=== PATIENT | female | born 1975 | race Caucasian/White ===

== ENCOUNTER 2019-11-08 18:39 | Emergency (ER) | payer MEDICAID ==
[~2019-11-08] VITALS: Ht 172.7 cm; Wt 104.5 kg
[2019-11-08 19:08] LABS: BASOPHILS % (AUTO) 0.4 % (0-1); EOSINOPHILS # (AUTO) 0.1 X10'3 (0-0.9); EOSINOPHILS % (AUTO) 1.9 % (0-6); HEMATOCRIT 41.3 % (35.0-45.0); LYMPHOCYTES # (AUTO) 2.4 X10'3 (1.1-4.8); LYMPHOCYTES % (AUTO) 32.1 % (21-51); MEAN CORPUSCULAR HGB CONC 33.9 g/dL (33.0-36.5); MEAN CORPUSCULAR VOLUME 94.6 FL (78-98); MEAN PLATELET VOLUME 8.3 FL (7.4-10.4); MONOCYTES # (AUTO) 0.6 X10'3 (0-0.9); MONOCYTES % (AUTO) 7.6 % (2-12); NEUTROPHILS # (AUTO) 4.3 X10'3 (1.8-7.7); PLATELET COUNT 278 X10'3 (140-440); RED BLOOD COUNT 4.36 X10'6 (4.20-5.60); RED CELL DISTRIBUTION WIDTH 12.6 % (11.5-14.5); WHITE BLOOD COUNT 7.5 X10'3 (4.5-11.0)
[2019-11-08 19:13] LABS: CLARITY,URINE CLEAR (Clear); COLOR,URINE YELLOW (Yellow); GLUCOSE, URINE NEGATIVE (Neg); KETONES,URINE NEGATIVE (Neg); LEUKOCYTE ESTERASE ,URINE TRACE (Neg); NITRITES, URINE NEGATIVE (Neg); OCCULT BLOOD,URINE NEGATIVE (Neg); PH,URINE 5.5 (4.8-8.0); PROTEIN,URINE NEGATIVE (Neg); UROBILINOGEN,URINE 0.2 E.U/dL (0.2-1.0)
[2019-11-08 19:14] LABS: UA COLLECTION TYPE CLN CATCH MIDSTREAM; URINE HCG NEGATIVE (NEG)
[2019-11-08 19:21] LABS: BACTERIA,URINE 2+ /HPF (Neg); RBC,URINE NONE SEEN /HPF (0-2); SQUAMOUS EPITHELIAL CELL,UR MODERATE /LPF (FEW); WBC,URINE 0-4 /HPF (0-4)
[2019-11-08 19:29] LABS: ALANINE AMINOTRANSFERASE 20 U/L (12-78); ALBUMIN 4.1 G/DL (3.4-5.0); ALBUMIN/GLOBULIN RATIO 1.2 (1.1-1.5); ALKALINE PHOSPHATASE 75 IU/L (46-116); AMYLASE 76 U/L (25-115); ANION GAP 11 (8-16); ASPARTATE AMINO TRANSFERASE 15 U/L (10-37); BILIRUBIN,TOTAL 0.4 MG/DL (0.1-1.0); BLOOD UREA NITROGEN 12 MG/DL (7-18); BUN/CREATININE RATIO 13.3 (6.6-38.0); CALCIUM 9.2 MG/DL (8.5-10.1); CHLORIDE 109 MMOL/L (99-107); GLUCOSE 88 MG/DL (70-104); LIPASE 106 U/L (73-393); POTASSIUM 3.6 MMOL/L (3.5-5.1); SODIUM 142 MMOL/L (135-145); TOTAL CARBON DIOXIDE 22.2 MMOL/L (24-32); TOTAL PROTEIN 7.5 G/DL (6.4-8.2); eGFR 69 ML/MIN
[2019-11-08] MEDS ORDERED: PANT-47 PO (20:26)
[2019-11-08] MEDS ORDERED: HYDR-3965 PO (20:26)
[2019-11-08] MEDS ORDERED: ONDA8TAB13 PO (20:26)
[2019-11-08] MEDS ORDERED: ondansetron/PF 4mg/2ml inj IV ONE (20:30)
[2019-11-08] MEDS ORDERED: normal saline 1000ML IV soln IVB ONE (20:30)
[2019-11-08] MEDS ORDERED: morphine 4 MG/ML inj SYRINge IV ONE (20:30)
[2019-11-08] MEDS ORDERED: pantoprazole 40 MG vial IV ONE (20:30)
[2019-11-08] MEDS ORDERED: PROP40TA72 PO (21:18)
[2019-11-08] MEDS ORDERED: TRAZ-219 PO (21:18)
[2019-11-08] MEDS ORDERED: TOPI25TA49 PO (21:18)
[2019-11-08 22:01] VITALS: BP 121/87
--- NOTE | 2019-11-11 11:13 | NUR ---
CALLED GOT A KRIS WHO SAID [phone] IS A WRONG NUMBER
--- NOTE | 2019-11-11 11:17 | NUR ---
CALLED NEXT OF K[facility] MABLE REVELES [phone], I LEFT A MESSAGE TO HAVE EDGAR CALL US BACK.
--- NOTE | 2019-11-11 11:45 | NUR ---
PT. CALLED BACK AND HER PHONE NUMBER HAD THE WRONG PREFIX. [phone]. PT. STATED SHE WANT US TO CALL IN RX AT [facility] ON [address]. SHE ALSO STATED SHE WOULD NOT BE TAKING THE ANTIBIOTIC UNLESS SHE COULD ALSO GET AN RX FOR DIFLUCAN. WROTE FOR MACROBID 100MG PO BID X 5 DAYS AND DIFLUCAN 200MG PO X 1 DOSE.
--- NOTE | 2019-11-11 12:02 | NUR ---
PHONED IN BOTH RX'S TO [facility] ON [facility].
== END 2019-11-08 22:02 | disposition home or self-care (01) ==
LOC: ER 18:40
DX: R10.11 Right upper quadrant pain (principal); R10.13 Epigastric pain; R11.10 Vomiting, unspecified; R19.7 Diarrhea, unspecified; G43.909 Migraine, unspecified, not intractable, without status migrainosus; I10 Essential (primary) hypertension; Z79.899 Other long term (current) drug therapy
CPT/HCPCS: 36415; 80053; 81001; 81025; 82150; 83690; 85025; 87077; 87088; 87186; 96361; 96374; 96375; 99283; C9113; J2270; J2405; J7030

== ENCOUNTER 2020-02-06 20:22 | Emergency (ER) | payer MEDICAID ==
[~2020-02-06] VITALS: Ht 172.7 cm; Wt 99.0 kg
[~2020-02-06 20:22] MED LIST: ONDA8TAB13 PO; PANT-47 PO; PROP40TA72 PO; TOPI25TA49 PO; TRAZ-256 PO
[2020-02-06 20:50] LABS: BASOPHILS % (AUTO) 0.6 % (0-1); EOSINOPHILS # (AUTO) 0.1 X10'3 (0-0.9); EOSINOPHILS % (AUTO) 1.7 % (0-6); HEMATOCRIT 40.7 % (35.0-45.0); HEMOGLOBIN 14.1 g/dl (12.0-16.0); LYMPHOCYTES # (AUTO) 2.2 X10'3 (1.1-4.8); LYMPHOCYTES % (AUTO) 33.9 % (21-51); MEAN CORPUSCULAR HEMOGLOBIN 31.7 PG (27.0-31.0); MEAN CORPUSCULAR HGB CONC 34.7 g/dL (33.0-36.5); MEAN CORPUSCULAR VOLUME 91.4 FL (78-98); MEAN PLATELET VOLUME 8.1 FL (7.4-10.4); MONOCYTES # (AUTO) 0.5 X10'3 (0-0.9); MONOCYTES % (AUTO) 7.9 % (2-12); NEUTROPHILS # (AUTO) 3.6 X10'3 (1.8-7.7); NEUTROPHILS % (AUTO) 55.9 % (42-75); PLATELET COUNT 253 X10'3 (140-440); RED BLOOD COUNT 4.45 X10'6 (4.20-5.60); RED CELL DISTRIBUTION WIDTH 12.3 % (11.5-14.5); WHITE BLOOD COUNT 6.4 X10'3 (4.5-11.0)
[2020-02-06 20:53] LABS: CLARITY,URINE CLEAR (Clear); COLOR,URINE YELLOW (Yellow); GLUCOSE, URINE NEGATIVE (Neg); KETONES,URINE NEGATIVE (Neg); LEUKOCYTE ESTERASE ,URINE TRACE (Neg); NITRITES, URINE POSITIVE (Neg); OCCULT BLOOD,URINE SMALL (Neg); PROTEIN,URINE NEGATIVE (Neg)
[2020-02-06 20:55] LABS: URINE HCG NEGATIVE (NEG)
[2020-02-06 20:59] LABS: UA COLLECTION TYPE CLN CATCH MIDSTREAM
[2020-02-06 21:00] LABS: ALANINE AMINOTRANSFERASE 16 U/L (12-78); ALBUMIN 3.9 G/DL (3.4-5.0); ALBUMIN/GLOBULIN RATIO 1.1 (1.1-1.5); ALKALINE PHOSPHATASE 68 IU/L (46-116); ANION GAP 10 (8-16); ASPARTATE AMINO TRANSFERASE 23 U/L (10-37); BILIRUBIN,TOTAL 0.4 MG/DL (0.1-1.0); BLOOD UREA NITROGEN 16 MG/DL (7-18); BUN/CREATININE RATIO 17.2 (6.6-38.0); CALCIUM 9.6 MG/DL (8.5-10.1); CHLORIDE 106 MMOL/L (99-107); CREATININE 0.93 MG/DL (0.40-0.90); GLUCOSE 92 MG/DL (70-104); LIPASE 116 U/L (73-393); POTASSIUM 3.6 MMOL/L (3.5-5.1); SODIUM 139 MMOL/L (135-145); TOTAL CARBON DIOXIDE 22.8 MMOL/L (24-32); TOTAL PROTEIN 7.3 G/DL (6.4-8.2); eGFR 66 ML/MIN
[2020-02-06 21:02] LABS: BACTERIA,URINE 1+ /HPF (Neg)
[2020-02-06 21:03] LABS: MUCUS STRANDS FEW /LPF (Neg); SQUAMOUS EPITHELIAL CELL,UR MODERATE /LPF (FEW)
[2020-02-06] MEDS ORDERED: morphine 4 MG/ML inj SYRINge IV ONE (21:20)
[2020-02-06] MEDS ORDERED: normal saline 1000ML IV soln IVB ONE (21:20)
[2020-02-06] MEDS ORDERED: pantoprazole 40 MG vial IV ONE (21:20)
[2020-02-06] MEDS ORDERED: ketorolac tromethamine 15mg/ml inj. IV ONE (21:20)
[2020-02-06] MEDS ORDERED: ondansetron/PF 4mg/2ml inj IV ONE (21:20)
[2020-02-06] MEDS ORDERED: CefTRIAXone/D5W-Rocephin 1gm 50 ML IV ONE (21:20)
[2020-02-06] MEDS ORDERED: LORazepam 2 mg/ml vial IV ONE (22:25)
[2020-02-06] MEDS ORDERED: morphine 2 MG/ML inj. syringe IV ONE ×2 (22:25→22:30)
[2020-02-06] MEDS ORDERED: HYDR-3965 PO (23:01)
[2020-02-06] MEDS ORDERED: PHEN-824 PO (23:01)
[2020-02-06] MEDS ORDERED: CEPH500C5 PO (23:01)
[2020-02-06 23:23] VITALS: BP 109/58
== END 2020-02-06 23:25 | disposition home or self-care (01) ==
LOC: ER 20:23
DX: N39.0 Urinary tract infection, site not specified (principal); R10.12 Left upper quadrant pain; R10.32 Left lower quadrant pain; R11.10 Vomiting, unspecified; G43.909 Migraine, unspecified, not intractable, without status migrainosus; I10 Essential (primary) hypertension; Z87.442 Personal history of urinary calculi; Z98.890 Other specified postprocedural states; Z88.2 Allergy status to sulfonamides; Z79.899 Other long term (current) drug therapy
CPT/HCPCS: 36415; 76775; 80053; 81001; 81025; 83690; 85025; 87088; 96365; 96375; 96376; 99284; C9113; J0696; J1885; J2060; J2270; J2405; J7030

== ENCOUNTER 2021-07-29 10:09 | Emergency (ER) | payer MEDICAID ==
[~2021-07-29] VITALS: Ht 172.7 cm; Wt 81.8 kg
[~2021-07-29 10:09] MED LIST changes: +PHEN-824 PO
[2021-07-29] MEDS ORDERED: acetaminophen 325mg tablet PO ONE (11:30)
[2021-07-29] MEDS ORDERED: DEXA6TAB6 PO (13:11)
[2021-07-29] MEDS ORDERED: CASIRIVIMAB/IMDEVIMAB inject. 10 ML in normal saline 100ml IV soln 100 ML IV ONE (13:15)
[2021-07-29 14:48] VITALS: BP 114/84
== END 2021-07-29 15:52 | disposition home or self-care (01) ==
LOC: ER 10:10
DX: U07.1 COVID-19 (principal); G43.909 Migraine, unspecified, not intractable, without status migrainosus; I10 Essential (primary) hypertension; Z87.442 Personal history of urinary calculi; Z98.890 Other specified postprocedural states; Z88.2 Allergy status to sulfonamides; Z79.899 Other long term (current) drug therapy
CPT/HCPCS: 71045; 87635; 99284; C9803; M0243; Q0244